=== PATIENT | female | born 1965 | race Caucasian/White ===

== ENCOUNTER 2018-03-20 09:24 | Day surgery (SDC) | payer OTHER ==
[2018-03-20] MEDS ORDERED: LIDOCAINE 2% (SDV) 5 ML INJ (10:46)
[2018-03-20] MEDS ORDERED: PROPOFOL 40 ML (10:46)
== END 2018-03-20 11:33 | disposition home or self-care (01) ==
LOC: GIL 09:24
DX: K92.1 Melena (principal); K29.50 Unspecified chronic gastritis without bleeding; K57.90 Diverticulosis of intestine, part unspecified, without perforation or abscess without bleeding; K64.8 Other hemorrhoids
CPT/HCPCS: 43239; 88305; 88312